=== PATIENT | female | born 1985 | race Hispanic/Latino ===

== ENCOUNTER 2018-08-14 20:10 | Emergency (ER) | payer OTHER ==
[~2018-08-14] VITALS: Ht 149.9 cm; Wt 64.4 kg
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
--- OUTSIDE RECORDS SUMMARY | 2018-08-14 20:13 | XMS REPORT | Clinical Summary ---
Author Author [facility] Organization [facility] Address Unknown Phone Unavailable Care Team Providers Care Accountant Supervisor Name Role Phone Ravi Fernando MD PCP Allergies Comments Active Allergy Reactions Severity Noted Date Adhesive Tape-Silicones Rash Low 11/20/2017 nausea Codeine 10/27/2015 Nausea, Anxiety, itchy Morphine Palpitations High 10/07/2017 Medications End Date Status Medication Sig Dispensed Refills Start Date 08/29/2017 ondansetron ODT (ZOFRAN Take 1 tablet 20 tablet 0 ODT) 4 MG disintegrating (4 mg total) 8 tablet by mouth every 8 (eight) hours as needed for nausea or vomiting for up to 20 days. 06/07/2018 oseltamivir (TAMIFLU) 75 Take 1 10 capsule 0 06/02/201 MG capsule capsule (75 9 mg total) by mouth every 12 (twelve) hours for 5 days. 06/04/2018 ondansetron (ZOFRAN) 4 MG Take 1 tablet 8 tablet 0 tablet (4 mg total) 9 by mouth every 6 (six) hours for 2 days. Active Problems No known active problems Encounters Care Team Description Date Type Specialty Karla Naik MA 07/21/2018 Orders Only Obstetrics and Gynecology Ophelia Zaidi MA Amenorrhea (Primary Dx) 07/21/2018 Orders Only Obstetrics and Gynecology Antonia Murray MD 07/21/2018 Telephone Obstetrics and Gynecology Natalya Reynoso RN EMP Guided Track 06/12/2018 Patient Quality Outreach Esme Rey 06/05/2018 Telephone Quality Lenora Miller 06/03/2018 Telephone Quality Katherine Pederson-Denise Walker MD Influenza A (Primary Dx) 06/02/2018 Emergency Emergency Medicine Aida Moeller LVN 02/27/2018 Telephone Obstetrics and Gynecology Aida Moeller LVN Missed ab (Primary Dx) 02/25/2018 Orders Only Obstetrics and Gynecology Antonia Murray MD Missed (Primary Dx) 02/24/2018 Telephone Obstetrics and Gynecology Scarlett Harkins RN Amenorrhea (Primary Dx) 10/07/2017 Orders Only Obstetrics and Gynecology Naren Kauffman MD 10/07/2017 Telephone Obstetrics and Gynecology after 08/13/2017 Family History Medical History Relation Name Comments Coronary artery disease Father Diabetes type I Father Heart failure Father Colon cancer Maternal Grandfather Diabetes Maternal Grandfather Hypertension Maternal Grandmother No Known Problems Mother Breast cancer Paternal Aunt at 45 Diabetes Paternal Aunt Hypertension Paternal Aunt Diabetes Paternal Grandfather Hypertension Paternal Grandfather Diabetes Paternal Grandmother Hypertension Paternal Grandmother Multiple myeloma Paternal Grandmother Stroke Paternal Grandmother Gestational diabetes Sister Relation Name Status Comments Father Maternal Grandfather Maternal Grandmother Alive Mother Alive Paternal Aunt Paternal Aunt Alive Paternal Grandfather Alive Paternal Grandmother Sister Alive Social History Date Tobacco Use Types Packs/Day Years Used Never Smoker Smokeless Tobacco: Never Used Tobacco Cessation: Counseling Given: Yes Alcohol Use Drinks/Week oz/Week Comments Yes 1 Glasses of 0.6 wine Sex Assigned at Date Recorded Not on file Industry Job Start Date Occupation Not on file Not on file Not on file Travel End Travel History Travel Start No recent travel history available. Last Filed Vital Signs Time Taken Vital Sign Reading 06/02/2018 8:53 AM CDT Blood Pressure 109/74 06/02/2018 8:53 AM CDT Pulse 94 06/02/2018 8:53 AM CDT Temperature 37.2 C (98.9 F) 06/02/2018 8:53 AM CDT Respiratory Rate 20 06/02/2018 8:53 AM CDT Oxygen Saturation 100% - Inhaled Oxygen - Concentration - Weight - 06/02/2018 8:54 AM CDT Height 152.4 cm (5') - Body Mass Index - Plan of Treatment Care Team Description Date Type Specialty hSantanu Sandoval MD [address] [facility] [address] [place] [id number] 08/19/2018 Ancillary Obstetrics and Gynecology Procedure Shantanu Sandoval MD [address] [facility] [address] [place] [address] [phone] 08/19/2018 Office Visit Obstetrics and Gynecology Health Maintenance Due Date Last Done Comments INFLUENZA VACCINE 10/16/2018 12/15/2015 Goals Goal Patient Associated Recent Progress Patient-Stat Author Goal Type Problems ed? Preventive Screenings Care Plan [facility] No Edgardo, PREVENTIVE Natalya, RN HEALTH CARE GAPS Improve Patient's ED Usage Care Plan [facility] IMPROPER No Edgardo, ED USAGE Natalya, mergers and acquisitions banker Comments Procedure Name Priority Date/Time Associated Diagnosis XR CHEST 2 VW STAT 06/02/2018 9:40 AM CDT STREP SCREEN CULTURE Routine 06/02/2018 9:04 AM CDT GROUP A STREP, RAPID Routine 06/02/2018 ANTIGEN 9:04 AM CDT INFLUENZA ANTIGEN TEST, Routine 06/02/2018 REFLEX NEGATIVE TO RPP 9:04 AM CDT HCG QUANTITATIVE, SERUM Routine 02/25/2018 Missed ab 9:38 AM BEAM PRESS OPERATOR HCG QUANTITATIVE, SERUM Routine 10/07/2017 Amenorrhea 1:14 PM CDT after 08/13/2017 Results * XR Chest 2 Vw (06/02/2018 9:40 AM CDT) Specimen Narrative Performed At EXAMINATION:XR CHEST 2 VW RADIANT CLINICAL HISTORY:Coughnew onset COMPARISON: None . IMPRESSION: Cardiomediastinal silhouette and pulmonary vasculature are within normal limits. Lungs are clear. No pleural effusion or pneumothorax. Bones are unremarkable. [id number] Procedure Note Interface, Radiology Results Incoming - 06/02/2018 9:43 AM CDT EXAMINATION: XR CHEST 2 VW CLINICAL HISTORY: Cough new onset COMPARISON: None . IMPRESSION: Cardiomediastinal silhouette and pulmonary vasculature are within normal limits. Lungs are clear. No pleural effusion or pneumothorax. Bones are unremarkable. [id number] Performing Organization Address City/State/Zipcode Phone Number [facility] [address] [place] [address] * Influenza antigen test, reflex negative to RPP (06/02/2018 9:04 AM CDT) Pathologist [facility] Influenza Positive for Influenza A [place] antigen antigen. (A) [facility] Comment: HOSPITAL Specimen Information Specimen Source: Nares Specimen Site: Right Specimen Nares - Right Performing Organization Address City/[facility] Phone Number [facility] DEPARTMENT OF [address] [place] [address] PATHOLOGY AND [facility] MEDICINE [place] [facility] [address] [place] [address] HOSPITAL * Group A strep, rapid antigen (06/02/2018 9:04 AM CDT) Pathologist [facility] Group A strep, Negative for Group A [place] rapid antigen Streptococcus antigen. [facility] result Comment: HOSPITAL Specimen Information Specimen Source: Throat Specimen Site: Not otherwise specified Specimen Throat - Not otherwise specified Performing Organization Address [facility] Phone Number [facility] [place] [address] PATHOLOGY AND GENOMIC MEDICINE [place] [facility] [address] [place] [address] HOSPITAL * Strep screen culture (06/02/2018 9:04 AM CDT) [facility] Strep screen No beta hemolytic Streptococci [place] culture isolate isolated [facility] [place] Comment: [facility] Specimen Information [facility] Specimen Source: Throat Specimen Site: Not otherwise specified Specimen Throat - Not otherwise specified Performing Organization Address City/[facility] Phone Number [facility] DEPARTMENT [address] [place] [address] PATHOLOGY AND GENOMIC MEDICINE [place] [facility] [place] [id number] [address] * hCG quantitative, serum (02/25/2018 9:38 AM BEAM PRESS OPERATOR) Only the most recent of 2 results within the time period is included. Pathologist [facility] hCG <1 mIU/mL [facility] quantitative, Comment: serum Female (Non-)0 - 5 (Pos tmenopausal)0 - 8 Female () Weeks of Gestation 3 6 -71 4 10 - 750 52 17 -7164 61 58 - 45667 7 [phone] -[phone] 10 89950 -[phone] 12 15918 -222010 14 83710 - 56109 15 19981 - 50201 16 9068 - 90898 17 8175 - 89227 18 8099 - 88158 Nubia ECLIA methodology Specimen Blood Narrative Performed At Performed at: - [facility] [place] [facility] [address], [id number] Supervisor Buffing And Pasting: Agusto Kaminski MD, Phone:[phone] Performing Organization Address City/State/Zipcode Phone Number [facility] after 08/13/2017 Insurance Type Payer Benefit Subscriber ID Effective Phone Address Plan / Dates Group HMO [employer] xxxxxxxxx 2017- STAR[employer]PLUS Present [facility] Advance Directives Patient has advance care planning documents on file. For more information, harinder e contact: Tomy Carlson [address] [place] [address]
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
[2018-08-14] MEDS ORDERED: SODIUM CHLORIDE 0.9% 1000ML 1,000 ML ONE ×2 (20:51→22:10)
[2018-08-14] MEDS ORDERED: SODIUM CHLORIDE 0.9% 1000ML 1,000 ML IV SCH (21:15)
[2018-08-14] MEDS ORDERED: SODIUM CHLORIDE 0.9% 1000ML 1,000 ML IV ONE (21:30)
[2018-08-14] MEDS ORDERED: CEFTRIAXONE SOD 1 GRAM/0.9% SOD CHL 50ML BAG IV STA (22:35)
[2018-08-14] MEDS ORDERED: CEFTRIAXONE SOD 1 GM VIAL ONE (22:39)
[2018-08-14] MEDS ORDERED: SODIUM CHLORIDE 0.9% 100 ML 100 ML ONE (22:39)
--- NOTE | 2018-08-15 00:14 | Diagnostic Imaging Report ---
Transvaginal and transabdominal ultrasound CPT code: 41801, 32830, 31973 Indication: , painful urination Technique: Transabdominal ultrasound performed for global evaluation of the uterus. Transvaginal ultrasound performed for detailed evaluation of the endometrium and ovaries. Selected images provided for review. Comparison: None Findings: LMP: 07/27/2018 Transabdominally the uterus shows a single gestational sac. Bladder is collapsed. Transvaginally, a single gestational sac and yolk sac are present. There is a single embryo measuring 17 mm. Cardiac activity is measured to be 159 bpm. No free fluid within endometrial canal. Subchorionic hemorrhage measures 5 x 14 x 9 mm. The cervix is normal. No free fluid in the cul de sac. Right ovary: Measures 1.4 x 1.9 x 2.5 cm. The echotexture is normal. No mass. Left ovary: Measures 4.7 x 5.2 x 5.6 cm. It contains a unilocular cyst measuring 39 x 55 x 4 mm. Blood flow is documented to both ovaries on color Doppler interrogation. IMPRESSION: 1. Single, live, intrauterine with estimated gestational age by ultrasound of 7 weeks 1 day. Estimated date of delivery 04/01/2019. 2. Small subchorionic hemorrhage. 3. Left ovarian cyst. Recommend follow-up ultrasound in 2-3 weeks to document interval change. Signed by: Dr. Janet Graham MD on 08/15/2018 12:11 AM
== END 2018-08-15 02:30 | disposition other institution (70) ==
LOC: FSED 20:10
DX: O26.51 Maternal hypotension syndrome, first trimester (principal); K52.9 Noninfective gastroenteritis and colitis, unspecified; E86.9 Volume depletion, unspecified; I95.9 Hypotension, unspecified
CPT/HCPCS: 36415; 76817 ×2; 80053; 81003; 81025; 84702; 85025; 87086; 99284; J0696; J7030